=== PATIENT | female | born 1960 | race Hispanic/Latino ===

== ENCOUNTER 2017-12-11 14:57 | Emergency (ER) | payer MEDICAID, OTHER ==
[2017-12-11 15:02] VITALS: RESP 16
--- NOTE | 2017-12-11 16:38 | CP.PCM.CON ---
History of Present Illness - History of Present Illness History of Present Illness: Podiatry consult notes for attending Dr. Ruiz; 57 y/o F patient with PMH of DM, HTN and Gastritis seen and evaluated in the ED for pain in her left LE. Patient states that she was going out of home and tripped down from 5 flights of stairs. Patient states that she tried to stand up but she couldn't. She states that she called the ambulance who braught her to the ED. Patient states that when she tried to stand on her right leg she had pain 8/10. She describes the pain as sharp pain about 5-6 cm above the right heel.. Patient states that there is no pain when she is off weight bearing. Patient denies any other pedal problem. She denies any recent F/N/V/C or SOB. She denies any tigling or numbness in her right LE but she states that she has burning sensation about 3-4 cm above her right heel. PMH: DM, HTN and Gastritis PSH: Lap. Cholecystectomy. Allergies: Hydromorphone, Sulpha. Social Hx: Smoker 1 ppd for 40 years. Denies EtOH or illicit drug use. Review of Systems - Review of Systems Review of Systems: As Per HPI Past Patient History - Past Social History Smoking Status: Heavy Smoker > 10 Cigarettes Daily - CARDIAC Hx Hypertension: Yes - PULMONARY Hx Respiratory Disorders: No - NEUROLOGICAL Hx Neurological Disorder: No Hx Dizziness: Yes - HEENT Hx HEENT Problems: No - RENAL Hx Chronic Kidney Disease: No - ENDOCRINE/METABOLIC Hx Diabetes Mellitus Type 2: Yes - HEMATOLOGICAL/ONCOLOGICAL Hx Blood Disorders: No - GASTROINTESTINAL Hx Gastritis: Yes - GENITOURINARY/GYNECOLOGICAL Hx Genitourinary Disorders: No - PSYCHIATRIC Hx Anxiety: Yes - SURGICAL HISTORY Hx Cholecystectomy: Yes - ANESTHESIA Hx Anesthesia: Yes Hx Anesthesia Reactions: No Hx Malignant Hyperthermia: No Meds Allergies/Adverse Reactions: Allergies Allergy/AdvReac Type Severity Reaction Status Date / Time hydromorphone [From Dilaudid] Allergy RASH Verified 12/11/17 15:00 Sulfa (Sulfonamide Allergy ITCHING Verified 12/11/17 15:00 Antibiotics) Physical Exam - Constitutional Appears: Well, Non-toxic, No Acute Distress - Head Exam Head Exam: ATRAUMATIC, NORMOCEPHALIC - Extremities Exam Additional comments: LE focused exam: Vasc: DP/PT 2/4 b/l. Cap refill < 3 sec to all digits. Temp gradient warm to cool from proximal to distal b/l. mild non pitting edema noted about 3-4 cm above the right Achilles insertion. No erythema. Neuro: Gross and protective sensations are intact b/l. Derm: No open lesions, No clinical signs of active infection. MSK: Palpable defect noted in the right Achilles tendon about 3-4 cm above the insertion. Pain on palpating this defective area.. Positive Alt[place]irano test on the right side. Muscle power 3/5 of the right ankle plantar flexors, 5/5 to all other muscle groups b/l. Pain with right ankle plantar and dorsiflexion against resistance. Pain with passive right ankle plantar and dorsiflexion. - Neurological Exam Neurological exam: Alert, Oriented x3 - Psychiatric Exam Psychiatric exam: Normal Affect, Normal Mood Results - Vital Signs Recent Vital Signs: Last Vital Signs Temp 98.6 F 12/11/17 15:00 Pulse 98 H 12/11/17 15:00 Resp 16 12/11/17 15:00 BP 114/90 12/11/17 15:00 Pulse Ox 99 12/11/17 15:00 Assessment & Plan - Assessment and Plan (Free Text) Assessment: 57 y/o F patient seen and evaluated in the ED for right Achilles tendon rupture. Plan: Patient seen and evaluated in the ED. Plan discussed in details with attending Dr. Ruiz. Charts, vitals reviewed; Patient is afebrile Right ankle X-ray reviewed; Loss of Kager triangle consistent with Achilles tendon rupture/Tear. Right LE MRI reviewed; Markedly thickened heterogenous appearance of the Achilles tendon with Increased signal intensity and ankle joint effusion. Discussed with the patient the R ankle X-ray and R LE MRI results. Posterior splint with 30 degrees ankle plantarflexion applied to the patient Right LE. Patient instructed to stay NWB to her right LE and to ambulates using crutches. Patient educated RICE protocol. Discussed with the patient that she will need surgical intervention for repair of the Achilles tendon. Benifits, risks, ,Alternatives and possible complications explained to the patient. Patient instructed to use the pain medication prescribed by the ED doctor in case she has pain. Patient expressed verbal understanding. Patient will follow up in the podiatry clinic. - Date & Time Date: 12/11/17 Time: 16:37
--- NOTE | 2017-12-11 17:00 | ED PDOC ---
Lower Extremity Pain/Injury Time Seen by Provider: 12/11/17 15:05 Chief Complaint (Nursing): Lower Extremity Problem/Injury Chief Complaint (Provider): Right ankle pain History Per: Patient, EMS History/Exam Limitations: no limitations Onset/Duration Of Symptoms: Mins ([employer]) Current Symptoms Are (Timing): Still Present Additional Complaint(s): 57 year old female presents to the ED via EMS complaining of right ankle pain which began just prior to arrival. Patient reports she was walking down steps on her way to work when she tripped. She indicates she fell down 5 steps. Denies head injury. She states she is dizzy but attributes that to being nervous. PMD: Dharmesh Kruse - Ankle/Foot Description Of Injury: Fell Past Medical History Reviewed: Historical Data, Nursing Documentation, Vital Signs Vital Signs: Last Vital Signs Temp 98.6 F 12/11/17 15:00 Pulse 98 H 12/11/17 15:00 Resp 16 12/11/17 15:00 BP 114/90 12/11/17 15:00 Pulse Ox 99 12/11/17 15:00 - Medical History PMH: Anxiety, Diabetes (untreated), Gastritis, HTN Denies: Chronic Kidney Disease - Surgical History Surgical History: Cholecystectomy - Family History Family History: States: Diabetes - Home Medications Home Medications: Ambulatory Orders Medication Instructions Recorded Alprazolam [Xanax] 0.5 mg PO HS 07/02/14 Lisinopril/Hydrochlorothiazide 1 tab PO DAILY 07/02/14 [Lisinopril-Hydrochlorothiazide 12.5 mg-10 mg] Omeprazole [Prilosec] 40 mg PO DAILY 07/02/14 Meclizine [Meclizine*] 25 mg PO Q12 PRN #10 tab 10/14/14 Metformin Hydrochloride [Metformin] 500 mg PO BID 10/14/14 Naproxen [Naprosyn] 500 mg PO BID PRN #20 tablet 12/11/17 - Allergies Allergies/Adverse Reactions: Allergies Allergy/AdvReac Type Severity Reaction Status Date / Time hydromorphone [From Dilaudid] Allergy RASH Verified 12/11/17 15:00 Sulfa (Sulfonamide Allergy ITCHING Verified 12/11/17 15:00 Antibiotics) Review of Systems ROS Statement: Except As Marked, All Systems Reviewed And Found Negative Musculoskeletal: Positive for: Other (Right ankle pain; denies head injury) Physical Exam - Reviewed Nursing Documentation Reviewed: Yes Vital Signs Reviewed: Yes - Physical Exam Appears: Positive for: Non-toxic, In Acute Distress (Mild acute distress) Head Exam: Positive for: ATRAUMATIC, NORMOCEPHALIC Skin: Positive for: Normal Color, Warm, Dry Eye Exam: Positive for: Normal appearance Neck: Positive for: Normal, Painless ROM Cardiovascular/Chest: Positive for: Regular Rate, Rhythm. Negative for: Murmur Respiratory: Positive for: Normal Breath Sounds. Negative for: Wheezing, Respiratory Distress Extremity: Positive for: Tenderness (Right posterior ankle), Other (achilles tendon not palpable; (+) Thomas's Sign). Negative for: Deformity Neurologic/Psych: Positive for: Alert, Oriented. Negative for: Motor/Sensory Deficits - ECG O2 Sat by Pulse Oximetry: 99 (RA) Pulse Ox Interpretation: Normal Medical Decision Making Medical Decision Making: Initial Impression: Right ankle pain Initial Plan: --Right ankle X-ray Scribe Attestation: Documented by Rah Akbar acting as a scribe for Joelle HAINES. Provider Scribe Attestation: All medical record entries made by the Scribe were at my direction and personally dictated by me. I have reviewed the chart and agree that the record accurately reflects my personal performance of the history, physical exam, medical decision making, and the department course for this patient. I have also personally directed, reviewed, and agree with the discharge instructions and disposition. Disposition - Clinical Impression Clinical Impression: Achilles rupture, right - Patient ED Disposition Is Patient to be Admitted: No Counseled Patient/Family Regarding: Diagnosis, Need For Followup, Rx Given - Disposition Referrals: Podiatry Clinic [Outside] Elias Martell DPM [Resident] - Disposition: Routine/Home Disposition Time: 19:33 Condition: GOOD Prescriptions: Naproxen [Naprosyn] 500 mg PO BID PRN #20 tablet PRN Reason: Pain Instructions: Achilles Tendon Rupture Forms: [facility] (K[place]akh), [facility] ED School/Work Excuse
--- NOTE | 2017-12-11 17:25 | RAD ---
Date of service: 12/11/2017 PROCEDURE: Right Ankle Radiographs. HISTORY: Posttraumatic right ankle pain. COMPARISON: None FINDINGS: BONES: No acute fractures. Plantar and Achilles Tendon insertion calcaneal spurs. JOINTS: Normal. No osteoarthritis. Ankle mortise maintained. Talar dome intact SOFT TISSUES: Normal. OTHER FINDINGS: None. IMPRESSION: No acute findings related to/accounting for the clinical presentation. Additional benign and/or incidental findings described above.
[2017-12-11] MEDS ORDERED: Oxycodone/Acetaminophen 5/325 mg Tab ONE (19:51)
[2017-12-11 20:44] VITALS: BP 128/72; PULSE 82; TEMP 98; O2SAT 98
--- NOTE | 2017-12-12 12:51 | MRI ---
MRI right ankle HISTORY: Achilles tendon rupture. COMPARISON: None available. Technique: Multi-echo multiplanar sequences were performed through the right ankle without the use of intravenous contrast. Findings: Anterior extensor tendons are preserved. Moderate tenosynovitis of the posterior tibial tendon sheath. Mild to moderate tenosynovitis of the peroneal tendon sheaths. Anterior and posterior tibiofibular ligaments are preserved. Prominent thinning and fraying with increased signal at the level of the anterior talofibular ligament suggestive for a partial tear and or moderate to high grade strain. Posterior talofibular ligament is preserved. Complete rupture of the distal Achilles tendon approximately 2.6 centimeters from its attachment on the posterior calcaneus. Tendon gap with tendon retraction measures 2.1 centimeters with fluid and edema in the tendon tract. Reactive edema and fluid seen within the retrocalcaneal bursa. Reactive edema seen within the posterior calcaneus. Moderate thickening of the plantar fascia measuring up to 9 millimeters suggestive for a mild plantar fascitis. Sinus tarsi is grossly preserved. Small to moderate ankle joint effusion. Degenerative changes noted at the dorsal aspect of the talonavicular joint space. Deltoid ligament is preserved. Impression: 1. Complete rupture of the distal Achilles tendon approximately 2.6 centimeters from its attachment on the posterior calcaneus. Tendon gap with tendon retraction measures 2.1 centimeters with fluid and edema in the tendon tract. Reactive edema and fluid seen within the retrocalcaneal bursa. Reactive edema seen within the posterior calcaneus. 2. Moderate tenosynovitis of the posterior tibial tendon sheath. 3. Mild to moderate tenosynovitis of the peroneal tendon sheaths. 4. Prominent thinning and fraying with increased signal at the level of the anterior talofibular ligament suggestive for a partial tear and or moderate to high grade strain. 5. Moderate thickening of the plantar fascia measuring up to 9 millimeters suggestive for a mild plantar fascitis. 6. Small to moderate ankle joint effusion. 7. Degenerative changes noted at the dorsal aspect of the talonavicular joint space.
== END 2017-12-11 21:01 | disposition home or self-care (01) ==
LOC: H.ER 14:57
DX: S86.012A Strain of left Achilles tendon, initial encounter (principal); W10.9XXA Fall (on) (from) unspecified stairs and steps, initial encounter; Y92.89 Other specified places as the place of occurrence of the external cause; E11.9 Type 2 diabetes mellitus without complications; Z79.84 Long term (current) use of oral hypoglycemic drugs; Z88.5 Allergy status to narcotic agent

== ENCOUNTER 2018-03-21 16:01 | Inpatient (IN) | payer MEDICAID ==
[2018-03-21 16:02] VITALS: BMI 40.6
--- NOTE | 2018-03-21 17:53 | ED PDOC ---
Lower Extremity Pain/Injury Time Seen by Provider: 03/21/18 17:21 Chief Complaint (Nursing): Lower Extremity Problem/Injury Chief Complaint (Provider): r leg swelling History Per: Patient History/Exam Limitations: no limitations Onset/Duration Of Symptoms: Days (3 weeks) Additional Complaint(s): Pt. with right calf swelling for 3 weeks. Has achilles tendon surgery by Dr. Sparrow in Nov. Saw him today and sent to the Er for dvt r/o. Pt. calf mild pain on touching. No numbness, tingles, weakness, injury. No chest pain or dyspnea. Past Medical History Reviewed: Nursing Documentation, Vital Signs Vital Signs: Last Vital Signs Temp 97.6 F 03/21/18 16:48 Pulse 91 H 03/21/18 16:48 Resp 18 03/21/18 16:48 BP 143/77 03/21/18 16:48 Pulse Ox 99 03/21/18 16:48 - Medical History PMH: Anxiety, Diabetes (untreated), Gastritis, HTN Denies: Chronic Kidney Disease - Surgical History Surgical History: Cholecystectomy Other surgeries: achilles tendon surgery R - Family History Family History: States: Diabetes - Home Medications Home Medications: Ambulatory Orders Medication Instructions Recorded Lisinopril/Hydrochlorothiazide 10 - 12.5 mg PO DAILY 07/02/14 [Lisinopril-Hctz 10-12.5 mg Tab] Omeprazole [Prilosec] 20 mg PO DAILY 07/02/14 MedroxyPROGESTERone [Provera] 10 mg PO DAILY 12/20/17 Alprazolam [Xanax] 0.5 mg PO DAILY 12/27/17 Cephalexin [Keflex] 500 mg PO Q8 cap 12/28/17 Enoxaparin [Lovenox] 40 mg SC DAILY syr 12/28/17 oxyCODONE/Acetaminophen [Percocet 1 tab PO Q4 PRN #20 tab 12/28/17 5/325 mg Tab] oxyCODONE/Acetaminophen [Percocet 2 tab PO Q4 PRN #20 tab 12/28/17 5/325 mg Tab] - Allergies Allergies/Adverse Reactions: Allergies Allergy/AdvReac Type Severity Reaction Status Date / Time hydromorphone [From Dilaudid] Allergy RASH Verified 03/21/18 17:11 Sulfa (Sulfonamide Allergy ITCHING Verified 03/21/18 17:11 Antibiotics) Review of Systems ROS Statement: Except As Marked, All Systems Reviewed And Found Negative Cardiovascular: Positive for: Edema (R calf) Musculoskeletal: Positive for: Leg Pain Physical Exam - Reviewed Nursing Documentation Reviewed: Yes Vital Signs Reviewed: Yes - Physical Exam Appears: Positive for: Non-toxic, No Acute Distress Head Exam: Positive for: ATRAUMATIC, NORMAL INSPECTION, NORMOCEPHALIC Skin: Positive for: Normal Color, Warm, DRY Neck: Positive for: Normal, Painless ROM Cardiovascular/Chest: Positive for: Regular Rate, Rhythm Respiratory: Positive for: CNT, Normal Breath Sounds Pulses-Dorsalis Pedis (L): 2+ Pulses-Dorsalis Pedis (R): 2+ Pulses-Post. Tibialis (L): 2+ Pulses-Post. Tibialis (R): 2+ Back: Positive for: Normal Inspection. Negative for: L CVA Tenderness, R CVA Tenderness Extremity: Positive for: Normal ROM, Tenderness (mild calf), Pedal Edema (R below knee including foot), Swelling (R calf and foot) Neurologic/Psych: Positive for: Alert, Oriented. Negative for: Motor/Sensory Deficits - Laboratory Results Result Diagrams: 03/21/18 19:15 03/21/18 19:15 Lab Results: no acute - ECG O2 Sat by Pulse Oximetry: 99 Pulse Ox Interpretation: Normal - CT Scan/US US Other Rad Studies (CT/US): Read By Radiologist Other Rad Interpretation: dvt femoral and popliteal - Progress ED Course And Treament: 1936: Stable. AAOx3. Spoke with Dr. Ferreira. Will admit. Pt. with no recent head injury, bleeding. Disposition - Clinical Impression Clinical Impression: DVT (deep venous thrombosis) - Patient ED Disposition Is Patient to be Admitted: Yes Counseled Patient/Family Regarding: Studies Performed, Diagnosis - Disposition Disposition Time: 19:37 Condition: FAIR - Pt Status Changed To: Hospital Disposition Of: Inpatient - Admit Certification Admit to Inpatient:: After my assessment, the patient will require hospitalization for at least two midnights. This is because of the severity of symptoms shown, intensity of services needed, and/or the medical risk in this patient being treated as an outpatient. - POA Present On Arrival: Deep Vein Thrombosis / PE
--- NOTE | 2018-03-21 18:51 | US ---
Date of service: 03/21/2018 PROCEDURE: Right lower extremity venous duplex Doppler. HISTORY: r/o dvt COMPARISON: None available. TECHNIQUE: Common femoral, superficial femoral, popliteal and posterior tibial veins were evaluated. Flow was assessed with color Doppler, compressibility, assessment of phasic flow and augmentation response. FINDINGS: COMMON FEMORAL VEIN: Occlusive thrombus without Doppler flow SUPERFICIAL FEMORAL VEIN: Unremarkable. POPLITEAL VEIN: Nonocclusive thrombus with partial Doppler flow POSTERIOR TIBIAL VEIN: Unremarkable. OTHER FINDINGS: Occlusive thrombus within the greater saphenous vein without Doppler flow IMPRESSION: Occlusive deep venous thrombus within the common femoral vein. Nonocclusive deep venous thrombus with partial Doppler flow in the popliteal vein. Occlusive superficial thrombophlebitis involving the greater saphenous vein. Findings given to the ER by the photo technologist immediately after conclusion of the examination.
[2018-03-21] MEDS ORDERED: Sodium Chloride 0.9% 500 ML IV STA (19:12)
[2018-03-21 19:22] LABS: BASO # 0.1 K/uL (0.0-0.2); BASO % 0.8 % (0.0-2.0); EOS # 0.1 K/uL (0.0-0.7); HEMOGLOBIN 13.9 g/dL (12.0-16.0); LYMPH # 1.9 K/uL (1.0-4.3); LYMPH % 21.2 % (20.0-40.0); MEAN CORPUSCULAR HEMOGLOBIN 29.7 pg (27.0-31.0); MEAN CORPUSCULAR HGB CONC 33.3 g/dL (33.0-37.0); MEAN PLATELET VOLUME 9.3 fl (7.2-11.7); MONO # 0.5 K/uL (0.0-0.8); MONO % 5.9 % (0.0-10.0); NEUT # 6.3 K/uL (1.8-7.0); NEUT % 71.1 % (50.0-75.0); RBC 4.67 Mil/uL (3.80-5.20); RED CELL DISTRIBUTION WIDTH 13.8 % (11.5-14.5); WHITE BLOOD COUNT 8.9 K/uL (4.8-10.8)
[2018-03-21 19:29] LABS: INR 1.2; PROTHROMBIN TIME 13.3 Seconds (9.8-13.1)
[2018-03-21] MEDS ORDERED: Iodixanol 320 MG/ML 100 ML BOTTLE IV ONE (19:29)
[2018-03-21] MEDS ORDERED: Sodium Chloride 0.9% 50 ML IV ONE (19:29)
[2018-03-21 19:31] LABS: PARTIAL THROMBOPLASTIN TIME 33.8 Seconds (25.6-37.1)
[2018-03-21 19:32] LABS: ALBUMIN 3.9 g/dL (3.5-5.0); ALT/SGPT 18 U/L (9-52); AST/SGOT 18 U/L (14-36); BLOOD UREA NITROGEN 18 mg/dl (7-17); GFR NON-AFRICAN AMERICAN 51
[2018-03-21] MEDS ORDERED: Enoxaparin 100 mg Syringe SC STA (19:33)
[2018-03-21] MEDS ORDERED: Oxycodone/Acetaminophen 5/325 mg Tab PO PRN (20:12)
[2018-03-21] MEDS ORDERED: Enoxaparin 120 mg Syringe SC STA (20:30)
--- NOTE | 2018-03-21 20:52 | CP.PCM.HP ---
<AllanRikio - Last Filed: 03/21/18 20:07> History of Present Illness - History of Present Illness History of Present Illness: 57 y/o F with a PMHx od DM2 and HTN was sent from [facility], Dr Ruiz, for evaluation of R lower leg erythema and swelling. Pt had a R Achilles tendon repair on 12/27/17, had to use a cast until 3 weeks ago when it was removed. Since 1 week ago, pt noticed that R lower leg swelling did not improved and aggravated. Pt only experience mild pain with deep palpation of R lower leg. Pt denies fever, chills, dizziness, cough, chest robles, SOB, abdominal pain, N/V/D. No Hx of DVT/PE in the past. PMD: [facility] Allergies: Sulfa, Hydromorphone PMHx: HTN, Type II DM, Anxiety PSHx: Cholecystectomy. R Achilles tendon repair Family Hx: maternal Grandmother- stomach cancer, Father & Mother both with diabetes Medications: Lisinopril-HCTZ, Prilosec, Provera, Xanax Social Hx: Admits to tobacco use daily 1 pack/day, denies ETOH or illicit drug use At ED: --CBC, BMP, coags and troponin were unremarkable ----Dupplex US of R lower extremity: occlusive DVT w/in the common femoral veingreater saphenous vein, non-occlusive DVT with partial doppler flow in popliteal vein. Present on Admission - Present on Admission Any Indicators Present on Admission: Yes History of DVT/PE: No History of Uncontrolled Diabetes: No Urinary Catheter: No Decubitus Ulcer Present: No - Notes: Notes:: Pt admitted for right lower extremity DVT. Review of Systems - Constitutional Constitutional: absent: Chills, Fever - EENT Nose/Mouth/Throat: absent: Nasal Congestion, Sore Throat, Neck Pain, Neck Mass - Cardiovascular Cardiovascular: absent: Acrocyanosis, Chest Pain, Chest Pain at Rest, Dyspnea, Orthopnea - Respiratory Respiratory: absent: Cough, Dyspnea, Hemoptysis, Wheezing, Pain on Inspiration - Gastrointestinal Gastrointestinal: absent: Abdominal Pain, Cramping, Hematemesis, Nausea, Vomiting - Genitourinary Genitourinary: absent: Difficulty Urinating, Dysuria, Hematuria, Urinary Frequency - Neurological Neurological: absent: Dizziness, Numbness, Frequent Falls, Paresthesias, Sensory Deficit, Weakness Past Patient History - Past Medical History & Family History Past Medical History?: Yes - Past Social History Smoking Status: Heavy Smoker > 10 Cigarettes Daily - CARDIAC Hx Hypertension: Yes - PULMONARY Hx Respiratory Disorders: No - NEUROLOGICAL Hx Neurological Disorder: No Hx Dizziness: Yes - HEENT Hx HEENT Problems: No - RENAL Hx Chronic Kidney Disease: No - ENDOCRINE/METABOLIC Hx Endocrine Disorders: No Hx Diabetes Mellitus Type 2: Yes - HEMATOLOGICAL/ONCOLOGICAL Hx Blood Disorders: No - INTEGUMENTARY Hx Dermatological Problems: No - MUSCULOSKELETAL/RHEUMATOLOGICAL Hx Musculoskeletal Disorders: No - GASTROINTESTINAL Hx Gastritis: Yes - GENITOURINARY/GYNECOLOGICAL Hx Genitourinary Disorders: No - PSYCHIATRIC Hx Anxiety: Yes - SURGICAL HISTORY Hx Cholecystectomy: Yes - ANESTHESIA Hx Anesthesia: Yes Hx Anesthesia Reactions: No Hx Malignant Hyperthermia: No Meds Allergies/Adverse Reactions: Allergies Allergy/AdvReac Type Severity Reaction Status Date / Time hydromorphone [From Dilaudid] Allergy RASH Verified 03/21/18 17:11 Sulfa (Sulfonamide Allergy ITCHING Verified 03/21/18 17:11 Antibiotics) Physical Exam - Constitutional Appears: No Acute Distress - Head Exam Head Exam: ATRAUMATIC, NORMAL INSPECTION - Eye Exam Eye Exam: EOMI, Normal appearance - ENT Exam ENT Exam: Mucous Membranes Moist - Neck Exam Neck exam: Positive for: Full Rom, Normal Inspection. Negative for: Meningismus - Respiratory Exam Respiratory Exam: NORMAL BREATHING PATTERN. absent: Chest Wall Tenderness, Decreased Breath Sounds, Rhonchi, Wheezes, Respiratory Distress - Cardiovascular Exam Cardiovascular Exam: REGULAR RHYTHM, +S1, +S2 - GI/Abdominal Exam GI & Abdominal Exam: Soft. absent: Distended, Guarding, Rebound, Tenderness - Extremities Exam Extremities exam: Positive for: calf tenderness (R lower leg), full ROM, normal capillary refill, pedal edema (R lower leg edema, ankle and foot, ~1+. ), tenderness (RLE), pedal pulses present. Negative for: joint swelling - Neurological Exam Neurological exam: Alert, Oriented x3 Results - Vital Signs Recent Vital Signs: Last Vital Signs Temp 97.6 F 03/21/18 16:48 Pulse 91 H 03/21/18 16:48 Resp 18 03/21/18 16:48 BP 143/77 03/21/18 16:48 Pulse Ox 99 03/21/18 19:38 - Labs Result Diagrams: 03/21/18 19:15 03/21/18 19:15 Labs: Laboratory Results - last 24 hr 03/21/18 03/21/18 03/21/18 19:15 19:15 19:15 WBC 8.9 RBC 4.67 Hgb 13.9 Hct 41.6 MCV 89.0 MCH 29.7 MCHC 33.3 RDW 13.8 Plt Count 216 MPV 9.3 Neut % (Auto) 71.1 Lymph % (Auto) 21.2 Newton % (Auto) 5.9 Eos % (Auto) 1.0 Baso % (Auto) 0.8 Neut # (Auto) 6.3 Lymph # (Auto) 1.9 Newton # (Auto) 0.5 Eos # (Auto) 0.1 Baso # (Auto) 0.1 PT 13.3 H INR 1.2 APTT 33.8 Sodium 141 Potassium 3.6 Chloride 104 Carbon Dioxide 28 Anion Gap 13 BUN 18 H Creatinine 1.1 Est GFR ( Amer) > 60 Est GFR (Non-Af Amer) 51 Random Glucose 137 H Calcium 9.0 Total Bilirubin 0.4 AST 18 ALT 18 Alkaline Phosphatase 79 Troponin I < 0.0120 Total Protein 7.7 Albumin 3.9 Globulin 3.8 Albumin/Globulin Ratio 1.0 Assessment & Plan - Assessment and Plan (Free Text) Assessment: 57 y/o female patient with PMHx of HTN, Type II DM, and Anxiety was admitted for evaluation and management of right lower extremity DVT. --Dupplex US of R lower extremity showed occlusive DVT w/in the common femoral veingreater saphenous vein, non-occlusive DVT with partial doppler flow in popliteal vein. PLAN: >Right lower extremity DVT --Afebrile, stable --S/P Right Achilles Tendon Repair on 12/27/17 --Lovenox 110mg SC today. --Considering initiating Elliquis if insurance allows, if not coumadin. >DM 2 --Chronic, diet controlled --Accucheck >Essential Hypertension --Resune home medication: Lisinopril-HCTZ 12.5 mg PO DAILY >Anxiety, ATILIO --Resume home medication: Xanax 0.5 mg PO DAILY >Hx of gastritis --Home med. Pantoprazole 40mg daily. Case discussed with Dr Jhon Chapman PGY-2 - Date & Time Date: 03/21/18 Time: 20:30 <Rich Ferreira D - Last Filed: 03/22/18 09:50> Results - Vital Signs Recent Vital Signs: Last Vital Signs Temp 97.5 F L 03/22/18 08:28 Pulse 76 03/22/18 08:59 Resp 20 03/22/18 08:28 BP 108/69 03/22/18 08:59 Pulse Ox 94 L 03/22/18 08:28 - Labs Result Diagrams: 03/22/18 06:45 03/22/18 06:45 Labs: Laboratory Results - last 24 hr 03/21/18 03/21/18 03/21/18 19:15 19:15 19:15 WBC 8.9 RBC 4.67 Hgb 13.9 Hct 41.6 MCV 89.0 MCH 29.7 MCHC 33.3 RDW 13.8 Plt Count 216 MPV 9.3 Neut % (Auto) 71.1 Lymph % (Auto) 21.2 Newton % (Auto) 5.9 Eos % (Auto) 1.0 Baso % (Auto) 0.8 Neut # (Auto) 6.3 Lymph # (Auto) 1.9 Newton # (Auto) 0.5 Eos # (Auto) 0.1 Baso # (Auto) 0.1 PT 13.3 H INR 1.2 APTT 33.8 Sodium 141 Potassium 3.6 Chloride 104 Carbon Dioxide 28 Anion Gap 13 BUN 18 H Creatinine 1.1 Est GFR ( Amer) > 60 Est GFR (Non-Af Amer) 51 POC Glucose (mg/dL) Random Glucose 137 H Calcium 9.0 Total Bilirubin 0.4 AST 18 ALT 18 Alkaline Phosphatase 79 Troponin I < 0.0120 Total Protein 7.7 Albumin 3.9 Globulin 3.8 Albumin/Globulin Ratio 1.0 03/21/18 03/22/18 03/22/18 22:37 06:08 06:45 WBC 6.4 RBC 4.03 Hgb 11.9 L D Hct 36.5 MCV 90.7 MCH 29.6 MCHC 32.6 L RDW 13.9 Plt Count 193 MPV 9.5 Neut % (Auto) 55.6 Lymph % (Auto) 32.4 Newton % (Auto) 8.5 Eos % (Auto) 3.0 Baso % (Auto) 0.5 Neut # (Auto) 3.6 Lymph # (Auto) 2.1 Newton # (Auto) 0.5 Eos # (Auto) 0.2 Baso # (Auto) 0.0 PT INR APTT Sodium Potassium Chloride Carbon Dioxide Anion Gap BUN Creatinine Est GFR ( Amer) Est GFR (Non-Af Amer) POC Glucose (mg/dL) 122 H 95 Random Glucose Calcium Total Bilirubin AST ALT Alkaline Phosphatase Troponin I Total Protein Albumin Globulin Albumin/Globulin Ratio 03/22/18 06:45 WBC RBC Hgb Hct MCV MCH MCHC RDW Plt Count MPV Neut % (Auto) Lymph % (Auto) Newton % (Auto) Eos % (Auto) Baso % (Auto) Neut # (Auto) Lymph # (Auto) Newton # (Auto) Eos # (Auto) Baso # (Auto) PT INR APTT Sodium 139 Potassium 3.6 Chloride 104 Carbon Dioxide 28 Anion Gap 11 BUN 17 Creatinine 1.1 Est GFR ( Amer) > 60 Est GFR (Non-Af Amer) 51 POC Glucose (mg/dL) Random Glucose 95 Calcium 8.2 L Total Bilirubin AST ALT Alkaline Phosphatase Troponin I Total Protein Albumin Globulin Albumin/Globulin Ratio Attending/Attestation - Attestation I have personally seen and examined this patient.: Yes I have fully participated in the care of the patient.: Yes I have reviewed all pertinent clinical information: Yes Notes (Text): 03/22/18 09:49 Patient seen and examined with resident. Case discussed and agreed with assessment and plan of management.
[2018-03-21] MEDS ORDERED: Enoxaparin 100 mg Syringe SC SCH (21:00)
[2018-03-22 07:09] LABS: BASO % 0.5 % (0.0-2.0); EOS # 0.2 K/uL (0.0-0.7); HEMOGLOBIN 11.9 g/dL (12.0-16.0); LYMPH # 2.1 K/uL (1.0-4.3); LYMPH % 32.4 % (20.0-40.0); MEAN CELL VOLUME 90.7 fl (81.0-99.0); MEAN CORPUSCULAR HEMOGLOBIN 29.6 pg (27.0-31.0); MEAN CORPUSCULAR HGB CONC 32.6 g/dL (33.0-37.0); MEAN PLATELET VOLUME 9.5 fl (7.2-11.7); MONO # 0.5 K/uL (0.0-0.8); MONO % 8.5 % (0.0-10.0); NEUT # 3.6 K/uL (1.8-7.0); NEUT % 55.6 % (50.0-75.0); NRBC % 0.1 % (0.0-0.0); RBC 4.03 Mil/uL (3.80-5.20); RED CELL DISTRIBUTION WIDTH 13.9 % (11.5-14.5); WHITE BLOOD COUNT 6.4 K/uL (4.8-10.8)
[2018-03-22 07:17] LABS: BLOOD UREA NITROGEN 17 mg/dl (7-17); CALCIUM 8.2 mg/dL (8.4-10.2); GFR NON-AFRICAN AMERICAN 51
[2018-03-22] MEDS ORDERED: Pantoprazole 40 mg EC Tab PO SCH (09:00)
--- NOTE | 2018-03-22 10:38 | CT ---
Date of service: 03/21/2018 PROCEDURE: CT Chest with contrast (Pulmonary Angiogram) HISTORY: chest pain COMPARISON: None available. TECHNIQUE: Axial computed tomography images were obtained of the chest in the pulmonary arterial phase of enhancement. Coronal and sagittal reformatted images were created and reviewed. Intravenous contrast dose: 77 mL Visipaque 320 Radiation dose: Total exam DLP = 332.64 mGy-cm. This CT exam was performed using one or more of the following dose reduction techniques: Automated exposure control, adjustment of the mA and/or kV according to patient size, and/or use of iterative reconstruction technique. FINDINGS: PULMONARY ARTERIES: Unremarkable. No pulmonary embolism. AORTA: No acute findings. No thoracic aortic aneurysm. No aortic atherosclerotic calcification or mural plaque present. LUNGS: Unremarkable. No nodule, mass or pulmonary consolidation. PLEURAL SPACES: Unremarkable. No effusion or pneumothorax. HEART: Unremarkable. No cardiomegaly. No significant pericardial effusion. LYMPH NODES: No lymphadenopathy. BONES, CHEST WALL: Unremarkable. No fracture or destructive lesion OTHER FINDINGS: For prior cholecystectomy. Pneumobilia. IMPRESSION: Unremarkable CT pulmonary angiogram. No pulmonary embolus.
--- NOTE | 2018-03-22 11:54 | CP.PCM.DIS ---
Provider - Provider Date of Admission: 03/21/18 19:38 Attending physician: Rich Ferreira MD Consults: 03/22/18 02:48 Social Work Referral Routine Comment: Smoking cessation Physician Instructions: Reason For Exam: Smoking cessation 03/22/18 06:49 Case Management Referral Routine Comment: Physician Instructions: Reason For Exam: pt will be d/c on eliquis Reason for Referral: Discharge Planning Time Spent in preparation of Discharge (in minutes): 30 Hospital Course - Lab Results Lab Results: Most Recent Lab Values WBC 6.4 K/uL (4.8-10.8) 03/22/18 06:45 RBC 4.03 Mil/uL (3.80-5.20) 03/22/18 06:45 Hgb 11.9 g/dL (12.0-16.0) L D 03/22/18 06:45 Hct 36.5 % (34.0-47.0) 03/22/18 06:45 MCV 90.7 fl (81.0-99.0) 03/22/18 06:45 MCH 29.6 pg (27.0-31.0) 03/22/18 06:45 MCHC 32.6 g/dL (33.0-37.0) L 03/22/18 06:45 RDW 13.9 % (11.5-14.5) 03/22/18 06:45 Plt Count 193 K/uL (130-400) 03/22/18 06:45 MPV 9.5 fl (7.2-11.7) 03/22/18 06:45 Neut % (Auto) 55.6 % (50.0-75.0) 03/22/18 06:45 Lymph % (Auto) 32.4 % (20.0-40.0) 03/22/18 06:45 [place] % (Auto) 8.5 % (0.0-10.0) 03/22/18 06:45 Eos % (Auto) 3.0 % (0.0-4.0) 03/22/18 06:45 Baso % (Auto) 0.5 % (0.0-2.0) 03/22/18 06:45 Neut # (Auto) 3.6 K/uL (1.8-7.0) 03/22/18 06:45 Lymph # (Auto) 2.1 K/uL (1.0-4.3) 03/22/18 06:45 [place]vert # (Auto) 0.5 K/uL (0.0-0.8) 03/22/18 06:45 Eos # (Auto) 0.2 K/uL (0.0-0.7) 03/22/18 06:45 Baso # (Auto) 0.0 K/uL (0.0-0.2) 03/22/18 06:45 PT 13.3 Seconds (9.8-13.1) H 03/21/18 19:15 INR 1.2 03/21/18 19:15 APTT 33.8 Seconds (25.6-37.1) 03/21/18 19:15 Sodium 139 mmol/l (132-148) 03/22/18 06:45 Potassium 3.6 MMOL/L (3.6-5.0) 03/22/18 06:45 Chloride 104 mmol/L (98-107) 03/22/18 06:45 Carbon Dioxide 28 mmol/L (22-30) 03/22/18 06:45 Anion Gap 11 (10-20) 03/22/18 06:45 BUN 17 mg/dl (7-17) 03/22/18 06:45 Creatinine 1.1 mg/dl (0.7-1.2) 03/22/18 06:45 Est GFR ( Amer) > 60 03/22/18 06:45 Est GFR (Non-Af Amer) 51 03/22/18 06:45 POC Glucose (mg/dL) 117 mg/dL (65-110) H 03/22/18 11:16 Random Glucose 95 mg/dL (65-105) 03/22/18 06:45 Calcium 8.2 mg/dL (8.4-10.2) L 03/22/18 06:45 Total Bilirubin 0.4 mg/dl (0.2-1.3) 03/21/18 19:15 AST 18 U/L (14-36) 03/21/18 19:15 ALT 18 U/L (9-52) 03/21/18 19:15 Alkaline Phosphatase 79 U/L (38-126) 03/21/18 19:15 Troponin I < 0.0120 ng/mL (0.00-0.120) 03/21/18 19:15 Total Protein 7.7 G/DL (6.3-8.2) 03/21/18 19:15 Albumin 3.9 g/dL (3.5-5.0) 03/21/18 19:15 Globulin 3.8 gm/dL (2.2-3.9) 03/21/18 19:15 Albumin/Globulin Ratio 1.0 (1.0-2.1) 03/21/18 19:15 - Hospital Course Hospital Course: 57 y/o female patient with PMHx of HTN, Type II DM, and Anxiety was admitted for evaluation and management of right lower extremity DVT. Dupplex US of R lower extremity showed occlusive DVT w/in the common femoral vein, greater saphenous vein, non-occlusive DVT with partial doppler flow in popliteal vein. Pulmonary CTA didn't show evidence of PE. Patient received Lovenox 110 mg SC. During her hospital stay patient didn't have any acute events. Patient will be discharged home on PO Eliquis for 3-6 months. Patient to follow up with her primary phys ician. Assessment: 57 y/o female patient with PMHx of HTN, Type II DM, and Anxiety was admitted for evaluation and management of right lower extremity DVT. --Dupplex US of R lower extremity showed occlusive DVT w/in the common femoral veingreater saphenous vein, non-occlusive DVT with partial doppler flow in popliteal vein. --Pulmonary CTA didn't show evidence of PE. PLAN: >Right lower extremity DVT --Afebrile, stable --S/P Right Achilles Tendon Repair on 12/27/17 --Dupplex US of R lower extremity showed occlusive DVT w/in the common femoral veingreater saphenous vein, non-occlusive DVT with partial doppler flow in popliteal vein. --Pulmonary CTA didn't show evidence of PE. --Lovenox 110mg SC yesterday. --Start Eliquis 10mg today PO Q12 for 7 days. --C/W Eliquis 5mg starting from week 2 for 3-6 months --Patient to follow up with her primary physician. Discharge Exam - Head Exam Head Exam: ATRAUMATIC, NORMAL INSPECTION - Eye Exam Eye Exam: EOMI, Normal appearance, PERRL Pupil Exam: NORMAL ACCOMODATION, PERRL - ENT Exam ENT Exam: Mucous Membranes Moist - Neck Exam Neck exam: Full Rom, Normal Inspection - Respiratory Exam Respiratory Exam: Clear to PA & Lateral, NORMAL BREATHING PATTERN, UNREMARKABLE - Cardiovascular Exam Cardiovascular Exam: +S1, +S2 - GI/Abdominal Exam GI & Abdominal Exam: Normal Bowel Sounds, Unremarkable - Extremities Exam Extremities exam: normal capillary refill, pedal edema Additional comments: Scar of Right Achilles tendon repair. Wound looks clean and intact with no signs of dehiscence. Mild Erythema and non pitting edema noted extending up to the calf. - Back Exam Back exam: NORMAL INSPECTION - Neurological Exam Neurological exam: Alert, Oriented x3 - Psychiatric Exam Psychiatric exam: Normal Affect, Normal Mood - Skin Skin Exam: Dry, Intact, Normal Color, Warm Discharge Plan - Follow Up Plan Condition: FAIR Disposition: HOME/ ROUTINE Instructions: Deep Vein Thrombosis (Blood Clots in the Legs) (DC), Pulmonary Embolism (DC), Pulmonary Embolism (GEN), Deep Venous Thrombosis (DC), Deep Venous Thrombosis (GEN) Additional Instructions: follow up appointment at [facility] on mar 30 at 11:20am with dr walter please bring insurance info, ID and discharge papers to appointment. Referrals: [facility] [place] [Outside] Mamta Brannon MD [Family Provider] -
--- NOTE | 2018-03-22 13:55 | CARD ---
APPROVED REPORT Date of service: 03/21/2018 EKG Measurement Heart [id number] <Conclusion> Normal sinus rhythm Right bundle branch block Inferior infarct, age undetermined Abnormal ECG
--- NOTE | 2018-03-22 14:13 | PQF ---
PROVIDER RESPONSE TEXT: There might be a relationship between the development of DVT on the same leg because of immobilizatio n as part of the management post right Achilles tendon repair REVIEWER QUERY TEXT: Cause and Effect Relationship Please clarify in documentation the relationship, if any, between the DVT and R Achilles tendon rep air Such as: -- Conditions are due to or associated: i.e. complication -- Unrelated to each other --Unable to determine -- Other, please specify H and P: Pt had a R Achilles tendon repair on 12/27/17, had to use a cast until 3 weeks ago when it w as removed. --was admitted for evaluation and management of right lower extremity DVT. --Dupplex US of R lower extremity showed occlusive DVT w/in the common femoral vein greater saphenous vein, non-occlusive DVT with partial doppler flow in popliteal vein. PLAN: >Right lower extremity DVT --Afebrile, stable --S/P Right Achilles Tendon Repair on 12/27/17 --Lovenox 110mg SC today.--Considering initiating Elliquis if insurance allows, if not coumadin. The patient's Clinical Indicators include: -- Query created by: Elen Rolon on 03/22/2018 11:02 AM Electronically signed by: Rich Ferreira MD 03/22/2018 2:10 PM
[2018-03-22 16:41] VITALS: BP 111/67; PULSE 67; RESP 18; TEMP 98; O2SAT 98
== END 2018-03-22 17:04 | disposition home or self-care (01) | DRG 543 ==
LOC: H.ER 16:01 → H.ERHOLD 19:38 → H.MEDSURG1 23:38
DX: T81.72XA Complication of vein following a procedure, not elsewhere classified, initial encounter (principal); I82.411 Acute embolism and thrombosis of right femoral vein; E11.9 Type 2 diabetes mellitus without complications; Z68.42 Body mass index [BMI] 45.0-49.9, adult; E66.9 Obesity, unspecified; I10 Essential (primary) hypertension; F41.9 Anxiety disorder, unspecified; K29.70 Gastritis, unspecified, without bleeding; F17.210 Nicotine dependence, cigarettes, uncomplicated